=== PATIENT | male | born 1985 | race Caucasian/White ===

== ENCOUNTER 2025-02-13 20:30 | Observation (INO) | payer OTHER, SELFPAY ==
[2025-02-13] VITALS (11 sets, daily range): BP systolic 133–158; BP diastolic 59–92; PULSE 51–80; RESP 18; TEMP 36.7; O2SAT 93–100; BMI 29.0
[2025-02-13] MEDS: ONDANSETRON 4 MG/2 ML INJ IV (20:48)
--- NOTE | 2025-02-13 21:03 | ED_ITS ---
HPI - Nausea/Vomiting/Diarrhea General Chief complaint: Nausea/Vomiting/Diarrhea Stated complaint: Vomiting for 6 hrs, chills Time Seen by Provider: 02/13/25 21:02 Source: patient Mode of arrival: Ambulatory History of Present Illness HPI Narrative: 40-year-old gentleman with no significant medical history on no current medications presents with severe vomiting for at least 6 hours now just dry heaves, no blood involved. He notes body aches and chills beginning yesterday. He had a couple of episodes of diarrhea yesterday, again no blood, none today. He comes in complaining of epigastric pain. No chest pain or dyspnea. No lower extremity edema. He has not ever had similar symptoms Related Data Previous Rx's Medication Instructions Recorded promethazine 25 mg tablet 25 mg PO Q6H PRN nausea and 02/14/25 vomiting #14 tabs Allergies Allergy/AdvReac Type Severity Reaction Status Date / Time No Known Drug Allergies Allergy Verified 02/13/25 20:34 Review of Systems Review of Systems Narrative: Pertinent positive and negative findings as per HPI Patient History tobacco type: vaping Exam Initial Vital Signs Initial Vital Signs: Vital Signs Temperature 98.1 F 02/13/25 20:34 Pulse Rate 60 02/13/25 20:34 Respiratory Rate 18 02/13/25 20:34 Blood Pressure 136/86 02/13/25 20:34 Pulse Oximetry 100 02/13/25 20:34 Oxygen Delivery Method Room Air 02/13/25 20:34 General: Appears pale and significantly dehydrated, retching but able to cooperate with exam HEENT: Moist mucous membranes, normal sclera with reactive pupils, Respiratory: Lungs are clear to auscultation, no wheezing no rales no rhonchi. Full and symmetrical air movement Cardiac: Regular rate and rhythm, he is not tachycardic despite the obvious volume loss, no murmurs no bruits Abdomen: Soft, epigastric tenderness only with no rebound or guarding, no flank pain Skin: Poor skin turgor, pale Neurologic: Grossly neurologically intact with no obvious asymmetries or abnormalities Extremities: No trauma, no lower extremity edema Psych: Cooperative, appropriate insight and affect Course Orders Ordered: ED Orders 02/13/25 20:46 Complete Blood Count AUTO DIFF Stat Comprehensive Metabolic Panel Stat Lipase Stat Magnesium Stat 02/13/25 21:54 CT abdomen pelvis w con Stat Sodium Chloride (Normal Saline 0.9%) 1,000 mls @ 150 mls/hr IV CONT MAXIMINO Ondansetron HCl (Ondansetron 4 Mg/2 Ml Inj) 4 mg IV NOW PRN PRN Reason: Nausea And Vomiting Last Admin: 02/13/25 20:48 Dose: 4 mg Documented By: MARSHA Ondansetron HCl (Ondansetron 4 Mg Odt) 4 mg SL NOW PRN PRN Reason: Nausea And Vomiting Discontinued Medications Diphenhydramine HCl (Diphenhydramine 50 Mg/Ml Vial) 25 mg IV NOW ONE Stop: 02/13/25 21:06 Last Admin: 02/13/25 21:18 Dose: 25 mg Documented By: ALEXIS Diphenhydramine HCl (Diphenhydramine 50 Mg/Ml Vial) 25 mg IV NOW ONE Stop: 02/14/25 01:17 Haloperidol (Haloperidol 5 Mg/Ml Vial) 2 mg IV NOW ONE Stop: 02/13/25 23:01 Last Admin: 02/13/25 23:10 Dose: 2 mg Documented By: ALEXIS Haloperidol (Haloperidol 5 Mg/Ml Vial) 2 mg IV NOW ONE Stop: 02/14/25 01:17 Hydromorphone HCl (Hydromorphone 0.5 Mg Inj) 0.5 mg IV NOW ONE Stop: 02/13/25 23:01 Last Admin: 02/13/25 23:10 Dose: 0.5 mg Documented By: ALEXIS Hydromorphone HCl (Hydromorphone 0.5 Mg Inj) 0.5 mg IV NOW ONE Stop: 02/14/25 01:17 Sodium Chloride (Normal Saline 0.9%) 1,000 mls @ 1,000 mls/hr IV BOLUS ONE Stop: 02/13/25 22:04 Last Infusion: 02/13/25 22:04 Dose: Infused Documented By: Admin: 02/13/25 21:17 Dose: 1,000 mls/hr Documented By: ALEXIS Sodium Chloride (Normal Saline 0.9%) 1,000 mls @ 1,000 mls/hr IV BOLUS ONE Stop: 02/13/25 22:04 Last Infusion: 02/13/25 23:40 Dose: Infused Documented By: Admin: 02/13/25 22:04 Dose: 1,000 mls/hr Documented By: DKB Prochlorperazine (Prochlorperazine 10 Mg/2 Ml Vial) 10 mg IV NOW ONE Stop: 02/13/25 21:06 Last Admin: 02/13/25 21:18 Dose: 10 mg Documented By: ALEXIS Vital Signs Vital signs: Vital Signs - 8 hr 02/13/25 20:34 02/13/25 20:53 02/13/25 20:54 Temperature 98.1 F Pulse Rate 60 54 L 53 L Respiratory Rate 18 Blood Pressure 136/86 Pulse Oximetry 100 97 98 Oxygen Delivery Method Room Air 02/13/25 20:54 02/13/25 21:00 02/13/25 21:00 Temperature Pulse Rate 56 L Respiratory Rate Blood Pressure 157/79 H 141/74 H Pulse Oximetry 98 Oxygen Delivery Method 02/13/25 21:30 02/13/25 21:31 02/13/25 21:31 Temperature Pulse Rate 72 60 Respiratory Rate Blood Pressure 134/71 Pulse Oximetry 100 98 Oxygen Delivery Method 02/13/25 22:00 02/13/25 22:00 02/13/25 22:33 Temperature Pulse Rate 79 Respiratory Rate Blood Pressure 149/92 H 158/83 H Pulse Oximetry 98 Oxygen Delivery Method 02/13/25 22:33 02/13/25 23:00 02/13/25 23:01 Temperature Pulse Rate 51 L 80 63 Respiratory Rate Blood Pressure Pulse Oximetry 100 97 98 Oxygen Delivery Method 02/13/25 23:01 02/13/25 23:30 02/13/25 23:30 Temperature Pulse Rate 53 L Respiratory Rate Blood Pressure 136/59 L 133/78 Pulse Oximetry 93 Oxygen Delivery Method 02/14/25 00:00 02/14/25 00:00 Temperature Pulse Rate 55 L Respiratory Rate Blood Pressure 125/78 Pulse Oximetry 93 Oxygen Delivery Method MDM - Nausea/Vomiting/Diarrhea Lab Data 02/13/25 20:46 02/13/25 20:46 Labs: Lab Results 02/13/25 Range/Units 20:46 WBC 17.1 H (4.5-11.0) X10^3/uL RBC 4.76 (4.5-5.9) X10^6/uL Hgb 14.2 (13.5-17.5) g/dL Hct 42.1 (41-53) % MCV 88.4 (80-100) fL MCH 29.9 (26-34) PG MCHC 33.8 (30-36) % RDW 13.4 (11.6-14.8) % Plt Count 268 (150-400) X10^3/uL Neut % (Auto) 87.4 H (50-75) % Lymph % (Auto) 5.0 L (25-40) % [place] % (Auto) 4.6 (3-14) % Eos % (Auto) 1.9 L (2-4) % Baso % (Auto) 1.1 (0-2) % Neut # (Auto) 16973 H (5210-9898) /uL Lymph # (Auto) 900 L (4385-6517) /uL [place] # (Auto) 800 (0-900) /uL Eos # (Auto) 300 (0-450) /uL Baso # (Auto) 200 H (0-100) /uL Sodium 141 (137-145) mmol/L Potassium 3.4 (3.4-5.1) mmol/L Chloride 107 (98-107) mmol/L Carbon Dioxide 19 L (22-32) mmol/L BUN 20 (9-20) mg/dL Creatinine 1.10 (0.66-1.25) mg/dL Estimated GFR > 60 (>60) mL/min BUN/Creatinine Ratio 18.2 (6-22) Glucose 170 H (70-100) mg/dL Calcium 10.0 (8.4-10.2) mg/dL Magnesium 1.8 (1.6-2.3) mg/dL Total Bilirubin 0.9 (0.2-1.3) mg/dL AST 43 (17-59) IU/L ALT 46 (<50) IU/L Alkaline Phosphatase 53 (38-126) U/L Total Protein 8.1 (6.3-8.2) g/dL Albumin 5.1 H (3.5-5.0) g/dL Globulin 3.0 (1.7-4.1) g/dL Albumin/Globulin Ratio 1.7 (1.0-2.8) Lipase 73 (23-300) U/L Imaging Data CT scan - abdomen/pelvis: Radiologist's Impression: PROCEDURE: CT ABDOMEN PELVIS W CON INDICATIONS: Leukocytosis, epigastric pain, persistent vomiting TECHNIQUE: After the administration of intravenous contrast, axial sections acquired from the lung bases to the pubic symphysis. Coronal and sagittal reformats were performed. For radiation dose reduction, the following was used: automated exposure control, adjustment of mA and/or kV according to patient size. COMPARISON: None. FINDINGS: Image quality: Diagnostic. Lower Chest: No significant findings. ABDOMEN: Liver: No solid mass. Mild hepatic steatosis is seen. Gallbladder: No radiopaque gallstones or wall thickening. Biliary ducts: No biliary dilation. Pancreas: No ductal dilation. Spleen: Size is within normal limits. Small splenule is noted adjacent to splenic hilum measures 1.8 cm in size. Adrenal Glands: No adrenal nodules. Kidneys and Ureters: No hydronephrosis. No solid mass. No complex renal cystic lesion which requires follow up. Stomach and Bowel: There is no bowel obstruction. Questionable gastric wall thickening is noted. No gross small bowel or colon wall thickening. No abscess collection. Appendix is visualized and is within normal limits. Peritoneum: No abnormal intraperitoneal fluid. No free air. Ventral Wall: No significant ventral hernia. Abdominal Nodes: No retroperitoneal or mesenteric adenopathy by size criteria. Vessels: Aorta and inferior vena cava are normal in size. PELVIS: Pelvic Organs: Unremarkable. Bladder: No bladder wall thickening, accounting for underdistention. Pelvic Nodes: No enlarged lymph nodes. Miscellaneous: No inguinal hernias are seen. Bones: No aggressive osseous abnormality. IMPRESSION: 1. Finding may represent gastritis. No small bowel or colon wall thickening. Normal appendix. No free fluid or free air. 2. No obstructing renal stones or hydronephrosis. 3. Other chronic findings as above. Dictated by: Papo Rocha M.D. on 02/13/2025 at 22:47 MDM Narrative Medical decision making narrative: CC: Severe vomiting Complicating co-morbidities: None Data collected from: patient Differential considered: Viral gastroenteritis, pancreatitis, bowel obstruction, GI bleed Exam documented above, pertinent findings include: Patient appears significantly dehydrated, dry heaving, epigastric tenderness without any other abdominal tenderness Lab Test results independently reviewed as above. Pertinent findings: CBC shows leukocytosis with white count at 17.1 and neutrophils at 87.4%. No anemia Chemistries show normal creatinine and electrolytes. Glucose is elevated at 170. Liver studies are unremarkable Lipase is not elevated Imaging studies independently reviewed: CT scan of the abdomen and pelvis is relatively unremarkable. Perhaps a bit of gastritis, no pancreatitis, masses, obstructions Treatments: 2 L of saline, prochlorperazine 10 mg and diphenhydramine 25 mg for nausea. He had taken Zofran prior to arrival which was not effective Re-evaluations: 11pm patient has now had 2 L of fluid, prochlorperazine, Benadryl and is still violently retching but hydrated enough that he has spontaneously voided. Briefly discussed cannabis use. He states that he smokes a couple of times a week but not daily. Possibility of cannabinoid hyperemesis syndrome is at least entertained. Continues to have severe epigastric pain associated with the retching. Agreeable to pain medication at this point. We will try 2 mg of Haldol as an antiemetic and half a mg of Dilaudid for pain and re-evaluate Discussion: 40-year-old gentleman with 1 day of fevers and body aches and profound vomiting with the associated epigastric pain. Workup does not show significant or life-threatening abnormalities. CT scan of the abdomen done due to the severity of overall pain is benign. No evidence of obstruction, mass, pancreatitis, gallstones or acute gallbladder disease. He was feeling better after 2 L of fluid, multiple different antiemetics. He has been able to tolerate some ice chips. 1am patient is still significantly nauseated, and able to even consider trying liquids, to ice chips were all he has been able to tolerate. Pain has been better controlled. We discussed possibility of admission for fluids and continued IV antiemetics for intractable nausea and vomiting and he would like to consider this. Has been 4 hours since last Benadryl dose, we will repeat dosing with 25 mg. Haldol seemed to be the most effective will dose an additional 2 mg IV. We will review with hospitalist Discharge Plan Departure Patient Disposition: Admitted as Observation Clinical Impression: Intractable vomiting, Acute epigastric pain
[2025-02-13 21:16] LABS: Add Manual Diff / Slide Review NO; Basophils Absolute Auto 200 /uL (0-100); Basophils Percent Auto 1.1 % (0-2); Eosinophils Absolute Auto 300 /uL (0-450); Eosinophils Percent Auto 1.9 % (2-4); Hematocrit 42.1 % (41-53); Hemoglobin 14.2 g/dL (13.5-17.5); Lymphocytes Absolute Auto 900 /uL (1100-4500); Mean Corpuscular HGB Conc 33.8 % (30-36); Mean Corpuscular Hemoglobin 29.9 PG (26-34); Mean Corpuscular Volume 88.4 fL (80-100); Monocytes Absolute Auto 800 /uL (0-900); Monocytes Percent Auto 4.6 % (3-14); Neutrophils Absolute Auto 15000 /uL (1500-7000); Neutrophils Percent Auto 87.4 % (50-75); Platelet Count 268 X10^3/uL (150-400); Red Blood Cell Count 4.76 X10^6/uL (4.5-5.9); Red Cell Distribution Width 13.4 % (11.6-14.8); White Blood Cell Count 17.1 X10^3/uL (4.5-11.0)
[2025-02-13] MEDS: SODIUM CHLORIDE 0.9% 1,000 ML 1000 ML IV ×2 (21:17→22:04)
[2025-02-13 21:18] LABS: Alanine Aminotransferase 46 IU/L (<50); Albumin 5.1 g/dL (3.5-5.0); Albumin Globulin Ratio 1.7 (1.0-2.8); Alkaline Phosphatase 53 U/L (38-126); Aspartate Aminotransferase 43 IU/L (17-59); BUN Creatinine Ratio 18.2 (6-22); Bilirubin Total 0.9 mg/dL (0.2-1.3); Blood Urea Nitrogen 20 mg/dL (9-20); Carbon Dioxide 19 mmol/L (22-32); Chloride 107 mmol/L (98-107); Estimated Glomerular Filt Rate > 60 mL/min (>60); Glucose 170 mg/dL (70-100); HEMOLYSIS < 15 (0-50); Lipase 73 U/L (23-300); Magnesium 1.8 mg/dL (1.6-2.3); Potassium 3.4 mmol/L (3.4-5.1); Sodium 141 mmol/L (137-145); Total Protein 8.1 g/dL (6.3-8.2)
[2025-02-13] MEDS: PROCHLORPERAZINE 10 MG/2 ML VIAL IV (21:18)
[2025-02-13] MEDS: diphenhydrAMINE 50 MG/ML VIAL 25 MG IV (21:18)
--- NOTE | 2025-02-13 21:54 | DI.CT.S_ITS ---
PROCEDURE: CT ABDOMEN PELVIS W CON INDICATIONS: Leukocytosis, epigastric pain, persistent vomiting TECHNIQUE: After the administration of intravenous contrast, axial sections acquired from the lung bases to the pubic symphysis. Coronal and sagittal reformats were performed. For radiation dose reduction, the following was used: automated exposure control, adjustment of mA and/or kV according to patient size. COMPARISON: None. FINDINGS: Image quality: Diagnostic. Lower Chest: No significant findings. ABDOMEN: Liver: No solid mass. Mild hepatic steatosis is seen. Gallbladder: No radiopaque gallstones or wall thickening. Biliary ducts: No biliary dilation. Pancreas: No ductal dilation. Spleen: Size is within normal limits. Small splenule is noted adjacent to splenic hilum measures 1.8 cm in size. Adrenal Glands: No adrenal nodules. Kidneys and Ureters: No hydronephrosis. No solid mass. No complex renal cystic lesion which requires follow up. Stomach and Bowel: There is no bowel obstruction. Questionable gastric wall thickening is noted. No gross small bowel or colon wall thickening. No abscess collection. Appendix is visualized and is within normal limits. Peritoneum: No abnormal intraperitoneal fluid. No free air. Ventral Wall: No significant ventral hernia. Abdominal Nodes: No retroperitoneal or mesenteric adenopathy by size criteria. Vessels: Aorta and inferior vena cava are normal in size. PELVIS: Pelvic Organs: Unremarkable. Bladder: No bladder wall thickening, accounting for underdistention. Pelvic Nodes: No enlarged lymph nodes. Miscellaneous: No inguinal hernias are seen. Bones: No aggressive osseous abnormality. IMPRESSION: 1. Finding may represent gastritis. No small bowel or colon wall thickening. Normal appendix. No free fluid or free air. 2. No obstructing renal stones or hydronephrosis. 3. Other chronic findings as above. Dictated by: Papo Rocha M.D. on 02/13/2025 at 22:47 Approved by: Papo Rocha M.D. on 02/13/2025 at 22:52
[2025-02-13] MEDS: HALOPERIDOL 5 MG/ML VIAL 2 MG IV (23:10)
[2025-02-13] MEDS: HYDROMORPHONE 0.5 MG INJ IV (23:10)
[2025-02-14] VITALS: BP 125/78; PULSE 55; O2SAT 93
[2025-02-14 00:30] VITALS: BP 126/64; PULSE 53; O2SAT 94
[2025-02-14 01:00] VITALS: BP 151/71; PULSE 66; O2SAT 97
[2025-02-14 01:30] VITALS: BP 148/79; PULSE 56; O2SAT 99
[2025-02-14] MEDS: SODIUM CHLORIDE 0.9% 1,000 ML 150 ML IV (01:30)
[2025-02-14] MEDS: HALOPERIDOL 5 MG/ML VIAL 2 MG IV (01:31)
[2025-02-14] MEDS: HYDROMORPHONE 0.5 MG INJ IV (01:31)
[2025-02-14] MEDS: diphenhydrAMINE 50 MG/ML VIAL 25 MG IV (01:32)
[2025-02-14 01:38] VITALS: BMI 30.4
[2025-02-14 01:55] VITALS: BP 117/74; PULSE 57; RESP 16; TEMP 36.6; O2SAT 94
[2025-02-14] MEDS: SODIUM CHLORIDE 0.9% 1,000 ML 100 ML IV (02:25)
[2025-02-14] MEDS: LORazepam 2 MG/ML INJ 1 MG IV (02:42)
--- NOTE | 2025-02-14 03:13 | PM.HP.1 ---
History of Present Illness History of Present Illness Chief complaint: Vomiting for 6 hrs, chills Narrative: 40-year-old male with past medical history of cannabinoid use presenting with severe nausea, vomiting and mild diarrhea. Per the patient report, over the last 6 hours, the patient been having severe dry heaves with nausea. The patient did have a few episodes of diarrhea that is nonbloody yesterday. The patient also reports of some generalized bodyaches and chills denies any fever, sick exposure. Otherwise the patient does have some epigastric abdominal pain. The patient's reports that he does smoke marijuana only a few times a week. In our emergency room, the patient was hemodynamically stable without signs of sepsis. CT abdomen does not show any acute finding. Lab only shows a WBC of 17,000 but lipase was not indicative of acute pancreatitis. Due to ongoing nausea and vomiting our ER physician requested admission to control the patient's symptoms. [facility] Social History household members: spouse and children Smoking Status: Never smoker Meds Home Medications and Allergies Home Medications Medication Instructions Recorded Confirmed Type duloxetine 30 mg capsule,delayed 30 mg PO DAILY 02/14/25 02/14/25 History release losartan 50 mg tablet 50 mg PO ONCE PM 02/14/25 02/14/25 History promethazine 25 mg tablet 25 mg PO Q6H PRN nausea and 02/14/25 Rx vomiting #14 tabs Allergies Allergy/AdvReac Type Severity Reaction Status Date / Time No Known Drug Allergies Allergy Verified 02/13/25 20:34 Review of Systems Review of Systems ROS: Yes All systems reviewed with the patient and are negative except as otherwise documented Exam Vital Signs (past 8 hours): - 02/13/25 20:34 02/13/25 20:53 02/13/25 20:54 Temperature 98.1 F Pulse Rate 60 54 L 53 L Respiratory Rate 18 Blood Pressure 136/86 Pulse Oximetry 100 97 98 Oxygen Delivery Method Room Air Oxygen Flow Rate 02/13/25 20:54 02/13/25 21:00 02/13/25 21:00 Temperature Pulse Rate 56 L Respiratory Rate Blood Pressure 157/79 H 141/74 H Pulse Oximetry 98 Oxygen Delivery Method Oxygen Flow Rate 02/13/25 21:30 02/13/25 21:31 02/13/25 21:31 Temperature Pulse Rate 72 60 Respiratory Rate Blood Pressure 134/71 Pulse Oximetry 100 98 Oxygen Delivery Method Oxygen Flow Rate 02/13/25 22:00 02/13/25 22:00 02/13/25 22:33 Temperature Pulse Rate 79 Respiratory Rate Blood Pressure 149/92 H 158/83 H Pulse Oximetry 98 Oxygen Delivery Method Oxygen Flow Rate 02/13/25 22:33 02/13/25 23:00 02/13/25 23:01 Temperature Pulse Rate 51 L 80 63 Respiratory Rate Blood Pressure Pulse Oximetry 100 97 98 Oxygen Delivery Method Oxygen Flow Rate 02/13/25 23:01 02/13/25 23:30 02/13/25 23:30 Temperature Pulse Rate 53 L Respiratory Rate Blood Pressure 136/59 L 133/78 Pulse Oximetry 93 Oxygen Delivery Method Oxygen Flow Rate 02/14/25 00:00 02/14/25 00:00 02/14/25 00:30 Temperature Pulse Rate 55 L 53 L Respiratory Rate Blood Pressure 125/78 Pulse Oximetry 93 94 Oxygen Delivery Method Oxygen Flow Rate 02/14/25 00:30 02/14/25 01:00 02/14/25 01:00 Temperature Pulse Rate 66 Respiratory Rate Blood Pressure 126/64 151/71 H Pulse Oximetry 97 Oxygen Delivery Method Room Air Oxygen Flow Rate 02/14/25 01:30 02/14/25 01:30 02/14/25 01:55 Temperature 97.8 F Pulse Rate 56 L 57 L Respiratory Rate 16 Blood Pressure 148/79 H 117/74 Pulse Oximetry 99 94 Oxygen Delivery Method Oxygen Flow Rate 0 Oxygen Delivery Method Room Air Oxygen Flow Rate 0 Narrative Exam Narrative: Physical Exam: GENERAL: The patient is not in any acute distressed. Awake and alert. HEENT: Nonicteric sclerae, PERRLA, EOMI. Oropharynx clear. Moist mucous membranes. Conjunctivae appear well perfused. HEART: Regular rate and rhythm without murmurs. No lower extremities edema. LUNGS: Clear to auscultation bilaterally. No wheezing, crackles or rhonchi ABDOMEN: Soft, positive bowel sounds, nontender. SKIN: No rash, no excessive bruising, petechiae, or purpura. NEUROLOGIC: AxO x 3. Cranial nerves II-XII intact without motor/sensory deficit. Objective Labs 02/13/25 20:46 02/13/25 20:46 Labs: Laboratory Results - last 24 hr 02/13/25 20:46 WBC 17.1 H RBC 4.76 Hgb 14.2 Hct 42.1 MCV 88.4 MCH 29.9 MCHC 33.8 RDW 13.4 Plt Count 268 Neut % (Auto) 87.4 H Lymph % (Auto) 5.0 L [place] % (Auto) 4.6 Eos % (Auto) 1.9 L Baso % (Auto) 1.1 Neut # (Auto) 73977 H Lymph # (Auto) 900 L [place] # (Auto) 800 Eos # (Auto) 300 Baso # (Auto) 200 H Sodium 141 Potassium 3.4 Chloride 107 Carbon Dioxide 19 L BUN 20 Creatinine 1.10 Estimated GFR > 60 BUN/Creatinine Ratio 18.2 Glucose 170 H Calcium 10.0 Magnesium 1.8 Total Bilirubin 0.9 AST 43 ALT 46 Alkaline Phosphatase 53 Total Protein 8.1 Albumin 5.1 H Globulin 3.0 Albumin/Globulin Ratio 1.7 Lipase 73 Assessment & Plan Assessment & Plan narrative: Severe nausea, vomiting and diarrhea. Met the patient to medical observation. Of note CT abdomen shows no acute finding. This could be gastroenteritis versus cannabinoids abuse. NPO. IV fluid. IV antiemetics. Leukocytosis. Likely stress-induced from severe nausea and vomiting. No signs of sepsis otherwise. Monitor for now. DVT prophylaxis SCDs. CODE STATUS full code. Disposition likely home in 1 to 2 days. - As the provider of this telehealth evaluation, requested by the patient's evaluating physician, I attest that I introduced myself to the patient, provided my credentials and determined that telemedicine via a real-time, 2 way interactive audio and video platform is an appropriate and effective means of providing this service. - I reviewed the patient's chart and had a discussion with the member of the patient's treatment team. - The patient and I mutually agreed with continuation of this evaluation via telemedicine. The patient consented for the telemedicine evaluation. - This virtual encounter was taken place from [place]. The encounter was approximately 35 minutes. The nurse was present during the entire time of the encounter and was able to move the stethoscope in appropriate directions. The patient was evaluated at [facility]. Time-Based Coding :: [TOTAL MINUTES] spent with patient and on the chart (including review of chart, obtaining history, exam, reviewing outside data, placing orders, documenting exam and treatment plan, and counseling patient) on [DATE].
[2025-02-14 05:18] LABS: Add Manual Diff / Slide Review NO; Basophils Absolute Auto 0 /uL (0-100); Basophils Percent Auto 0.5 % (0-2); Eosinophils Absolute Auto 0 /uL (0-450); Hematocrit 35.9 % (41-53); Hemoglobin 12.4 g/dL (13.5-17.5); Lymphocytes Absolute Auto 1000 /uL (1100-4500); Lymphocytes Percent Auto 10.1 % (25-40); Mean Corpuscular HGB Conc 34.5 % (30-36); Mean Corpuscular Hemoglobin 30.3 PG (26-34); Mean Corpuscular Volume 87.9 fL (80-100); Monocytes Absolute Auto 400 /uL (0-900); Monocytes Percent Auto 4.6 % (3-14); Neutrophils Absolute Auto 8100 /uL (1500-7000); Neutrophils Percent Auto 84.8 % (50-75); Platelet Count 196 X10^3/uL (150-400); Red Blood Cell Count 4.08 X10^6/uL (4.5-5.9); White Blood Cell Count 9.6 X10^3/uL (4.5-11.0)
[2025-02-14 05:27] LABS: BUN Creatinine Ratio 15.1 (6-22); Blood Urea Nitrogen 14 mg/dL (9-20); Calcium 8.5 mg/dL (8.4-10.2); Carbon Dioxide 22 mmol/L (22-32); Chloride 109 mmol/L (98-107); Estimated Glomerular Filt Rate > 60 mL/min (>60); Glucose 122 mg/dL (70-100); HEMOLYSIS < 15 (0-50); Potassium 4.1 mmol/L (3.4-5.1); Sodium 139 mmol/L (137-145)
--- NOTE | 2025-02-14 09:41 | PM.DS.IH.1 ---
History of Present Illness History of Present Illness Date Patient Seen: 02/14/25 Time Patient Seen: 09:35 Chief complaint: Vomiting for 6 hrs, chills Narrative: 40-year-old male with past medical history of cannabinoid use presenting with severe nausea, vomiting and mild diarrhea. Per the patient report, over the last 6 hours, the patient been having severe dry heaves with nausea. The patient did have a few episodes of diarrhea that is nonbloody yesterday. The patient also reports of some generalized bodyaches and chills denies any fever, sick exposure. Otherwise the patient does have some epigastric abdominal pain. The patient's reports that he does smoke marijuana only a few times a week. In our emergency room, the patient was hemodynamically stable without signs of sepsis. CT abdomen does not show any acute finding. Lab only shows a WBC of 17,000 but lipase was not indicative of acute pancreatitis. Due to ongoing nausea and vomiting our ER physician requested admission to control the patient's symptoms. Discharge Providers Provider Date of admission: 02/14/25 01:27 Discharge Date: 02/14/25 Primary care physician: MAME Ortez Discharge provider: Kaden Gottlieb MD Summary Hospital Course Discharge Diagnosis: 1. Severe nausea, vomiting and diarrhea, likely acute viral gastroenteritis versus food poisoning, resolved 2. Leukocytosis due to 1., resolved 3. History of cannabinoid use Hospital Course: The patient was admitted and administered IV fluids and antiemetics and improved significantly overnight. Interested in advancing diet and discharge home. He is doing well without problems and feels ready for discharge home and advancing diet to usual food. Status at Discharge Cognitive/behavioral status at discharge: oriented Functional status at discharge: independent ambulation Overall status at discharge: patient is back to baseline Time Spent with Patient Time spent: Less than 30 minutes Exam Vital Signs (past 8 hours): - 02/14/25 01:55 Temperature 97.8 F Pulse Rate 57 L Respiratory Rate 16 Blood Pressure 117/74 Pulse Oximetry 94 Oxygen Flow Rate 0 Oxygen Delivery Method Room Air Oxygen Flow Rate 0 Narrative Exam Narrative: GENERAL: This is a well-nourished, well-developed patient, in no apparent distress. HEAD: Atraumatic. Normocephalic. No temporal or scalp tenderness. EYES: Pupils equal round and reactive. Extraocular motions intact. No scleral icterus. No injection or drainage. ENT: Mucous membranes pink and moist. NECK: Trachea midline. No JVD, bruits or lymphadenopathy. Supple, nontender, no meningeal signs. CARDIOVASCULAR: Regular rate and rhythm without murmurs, gallops, or rubs. RESPIRATORY: Clear to auscultation. GASTROINTESTINAL: Abdomen soft, non-tender, nondistended. EXTREMITIES: No clubbing, cyanosis, or edema. BACK: Nontender without deformity or crepitance. No flank tenderness. NEUROLOGIC: Alert, oriented, speech fluent, full upper and lower motor strength, no focal deficits evident. DERMATOLOGIC: No rashes or skin lesions. Several tattoos noted. Objective Imaging CT scan - abdomen: Radiologist's impression: 1. Finding may represent gastritis. No small bowel or colon wall thickening. Normal appendix. No free fluid or free air. 2. No obstructing renal stones or hydronephrosis. 3. Other chronic findings as above. Labs 02/14/25 05:08 02/14/25 05:08 Labs: Laboratory Results - last 24 hr 02/13/25 02/14/25 20:46 05:08 WBC 17.1 H 9.6 RBC 4.76 4.08 L Hgb 14.2 12.4 L Hct 42.1 35.9 L MCV 88.4 87.9 MCH 29.9 30.3 MCHC 33.8 34.5 RDW 13.4 13.0 Plt Count 268 196 Neut % (Auto) 87.4 H 84.8 H Lymph % (Auto) 5.0 L 10.1 L Thomas % (Auto) 4.6 4.6 Eos % (Auto) 1.9 L 0.0 L Baso % (Auto) 1.1 0.5 Neut # (Auto) 06212 H 8100 H Lymph # (Auto) 900 L 1000 L Thomas # (Auto) 800 400 Eos # (Auto) 300 0 Baso # (Auto) 200 H 0 Sodium 141 139 Potassium 3.4 4.1 Chloride 107 109 H Carbon Dioxide 19 L 22 BUN 20 14 Creatinine 1.10 0.93 Estimated GFR > 60 > 60 BUN/Creatinine Ratio 18.2 15.1 Glucose 170 H 122 H Calcium 10.0 8.5 Magnesium 1.8 Total Bilirubin 0.9 AST 43 ALT 46 Alkaline Phosphatase 53 Total Protein 8.1 Albumin 5.1 H Globulin 3.0 Albumin/Globulin Ratio 1.7 Lipase 73 PFSH Social History household members: spouse and children Smoking Status: Never smoker Discharge Plan Discharge Plan Patient Disposition: Home Provider Discharge Comment: Discharge home when tolerating diet; followup with PCP 1 week as needed Discharge orders & Medications Prescriptions: Continued losartan 50 mg tablet 50 mg PO ONCE PM duloxetine 30 mg capsule,delayed release(DR/EC) 30 mg PO DAILY Follow up/Referrals: Jinny Juarez ARNP [Primary Care Provider] - Diet/Activity/Treatments Diet: Diet as Tolerated Visit Report/Discharge Packet Instructions: DI for Viral Gastroenteritis -- Adult, DI for Vomiting -- Adult Stand Alone Forms: Patient Portal/API, Stroke Signs & Symptoms, Patient Portal/API/Survey Discharge Data Primary Care Provider: Jinny Juaerz Attending Provider: Brandt Alberts Admit Date/Time: 02/14/25 01:27 Quality MIPS - Admit I confirm the patient?s Advance Care Plan is present, Code status is documented, Surrogate decision maker is in patient?s record [If Yes, STOP here]: Yes MIPS - Meds 'Current medications' to include all prescriptions, olke-hit-ofypody products, herbals, cannabis/cannabidiol products, and vitamin/mineral/dietary (nutritional) supplements. I have utilized all available resources to obtain, update, or review the patient?s current medications. [If Yes, STOP here]: Yes MIPS - DC The patient has a history of heart transplant or Left Ventricular Assist Device (LVAD). If yes, STOP here.: No The patient has current or prior documentation of left ventricular ejection fraction (LVEF) less than or equal to 40%, or moderate or severely depressed left ventricular systolic function.: No A. The patient was prescribed or already taking an Angiotensin-Converting Enzyme (KANDACE) Inhibitor, or Angiotensin Receptor Kye (ARB).: Yes B. The patient was prescribed or already taking a beta-kye. [If Yes to Both A & B, STOP here]: No Patient not prescribed/taking KANDACE or ARB, no reason given.: No Patient not prescribed/taking beta-kye, no reason given.: No I[facility] PROFEE Charge Codes Discharge inpatient/observation: [id number]
--- NOTE | 2025-02-14 10:14 | PC.NURSE ---
Addendum entered by Alvina Tran R.N. 02/14/25 13:32: Tolerating liquids w/o N/V Up ad noa. Orders for D/C received. SL D/C intact. Home instructions given w/understanding Pt escorted by staff ambulatory to waiting vehicle D/C in stable status Original Note: Pt A/O Denies N/V discomfort Taking clear liquids w/o incidense SL intact/patent Orders for discharge received. Will assess sfter lunch Call light w/in reach, pt calls appropriately for needs . Continue w/ plan of care.
--- NOTE | 2025-02-14 10:50 | CM.DANOTE ---
DCP Assessment Note: Pt is a 40yo male, resident of [place], is admitted for intractable vomiting and acute epigastric pain. Pt lives in a house with his and children. Pt's Primary Care Provider is MAME Ortez and insurance is [employer]. Reviewed chart and discussed with multidisciplinary team pt's medical status and initial discharge needs. Per RN, pt has been sleeping soundly all morning and seems to be cleared for discharge per provider. No needs identified. Plan: Anticipating dc home with spouse when medically cleared, discharge orders are in. CM team will follow closely for coordination of discharge plans. ILENE Estrella Discharge Planning/Care Management CM Discharge Assessment Start: 02/14/25 10:48 Freq: Status: Active Protocol: Document 02/14/25 10:48 MW (Rec: 02/14/25 10:50 MW Desktop) Discharge Planning Assessment Assigned Angle Shear Operator JONATHAN Cerda DPOA/Assigned Designee Name Shannon, Spouse Contact Information [phone] Advance Directives? No History Provided By Patient,Medical Record Has Patient been admitted in last 30 No days? Prior Living Arrangements House Comment [place] Household Members spouse,children Type of transporation used prior to Drives own vehicle admit Independent with ADL's Yes Is patient alert and oriented? Yes Caregiver for Another Yes: Children Comment Home Barriers to Discharge No Transportation Arrangement Spouse Referrals Initiated None needed Whiteboard Updated in Patient Room with Yes name and ext. # of Angle Shear Operator Review Status In Process Please Provide Date Initial DC 02/14/25 Assessment Was Performed Next Review Type Continued Stay Review
== END 2025-02-14 13:20 | disposition home or self-care (01) ==
LOC: ED 02-14 01:27 → AC 02-14 01:28
PROVIDERS: Admitting Provider Internal Medicine; Emergency Provider Emergency Medicine; PCP Nurse Practitioner; Visit Provider Internal Medicine
DX: R11.2 Nausea with vomiting, unspecified (principal); R10.13 Epigastric pain; R19.7 Diarrhea, unspecified; D72.829 Elevated white blood cell count, unspecified; F12.90 Cannabis use, unspecified, uncomplicated
CPT/HCPCS: 36415; 74177; 80048; 80053; 83690; 83735; 85025; 96361; 96374; 96375; 96376; 99284; G0378; J0780; J1171; J1200; J1630; J2060; J2405; Q9967